=== PATIENT | male | born 1945 | race African-American/Black ===

== ENCOUNTER 2017-07-03 06:09 | Observation (INO) | payer MEDICARE ==
[~2017-07-03] VITALS: Ht 165.1 cm; Wt 89.5 kg
[~2017-07-03 06:09] MED LIST: ACET325T26 PO; AMLO5TAB4 PO; ASPI325T80 PO; CHOL200074 PO; CYCL1DRO EACHEYE; DIPH25CA61 PO; DONE10TA56 PO; DOXE10CA PO; FLUT16SP NAS; IBUP200T64 PO; IPRA15SP PO; LISI1TAB7 PO; METH750T2 PO; MINOXIDIL PO; OXYC-307 PO; RANI150T8 PO; RANI75TA12 PO; ROSU10TA PO; ROSU5TAB PO; SILD100T PO; TAMS-11 PO; VITA400C43 PO; ZOLP10TA PO
[2017-07-03 06:56] VITALS: BP 116/69
[2017-07-03] MEDS ORDERED: BUPIVACAINE/PF 0.5% ONE (07:24)
[2017-07-03] MEDS ORDERED: THROMBIN 5,000 UNIT VIAL TP ONE (07:24)
[2017-07-03] MEDS ORDERED: BACITRACIN 50,000 UNIT ONE (07:25)
[2017-07-03] MEDS ORDERED: EPINEPHRINE 1 MG/ML, 1ML ONE (07:25)
[2017-07-03] MEDS ORDERED: FENTANYL PF 100 MCG/2ML ONE ×3 (08:06→10:18)
[2017-07-03] MEDS ORDERED: DEXAMETHASONE 4 MG/ML, 1ML ONE (08:08)
[2017-07-03] MEDS ORDERED: CEFAZOLIN 1,000 MG ONE (08:08)
[2017-07-03] MEDS ORDERED: ROCURONIUM 10 MG/ML ONE (08:08)
[2017-07-03] MEDS ORDERED: PROPOFOL 10 MG/ML, 20ML ONE (08:08)
[2017-07-03] MEDS ORDERED: ONDANSETRON 2MG/ML, 2ML ONE (08:08)
[2017-07-03] MEDS ORDERED: SUCCINYLCHOLINE 20 MG/ML, 10ML ONE (08:08)
[2017-07-03] MEDS ORDERED: HYDROmorphone 1 MG/ML, 1ML IV PRN (09:30)
[2017-07-03] MEDS ORDERED: PROMETHAZINE 25 MG/ML, 1ML IM PRN (09:30)
[2017-07-03] MEDS ORDERED: HYDROmorphone PCA 30 MG/30 ML IV PRN (09:30)
[2017-07-03] MEDS ORDERED: hydrALAzine 20 MG/ML, 1ML IV PRN (09:30)
[2017-07-03] MEDS ORDERED: OXYcodone 5 MG/5 ML ORAL.SOL UDC PO PRN (09:30)
[2017-07-03] MEDS ORDERED: FENTANYL PF 100 MCG/2ML IV PRN (09:30)
[2017-07-03] MEDS ORDERED: OXYcodone/APAP 5/325MG TABLET PO PRN (09:30)
[2017-07-03] MEDS ORDERED: MAGNESIUM HYDROXIDE 8%, 30ML UDC PO PRN (09:30)
[2017-07-03] MEDS ORDERED: FAMOTIDINE 20 MG TABLET PO PRN (09:30)
[2017-07-03] MEDS ORDERED: morphine SULFATE 10 MG/ML, 1ML IVPush PRN (09:30)
[2017-07-03] MEDS ORDERED: DIAZEPAM 5 MG/ML, 2ML IVPush PRN (09:30)
[2017-07-03] MEDS ORDERED: PHARMACY MAY ADJ FOR RENAL FX MC PRN (09:30)
[2017-07-03] MEDS ORDERED: ONDANSETRON 2MG/ML, 2ML IVPush PRN ×2 (09:30)
[2017-07-03] MEDS ORDERED: LABETALOL 5MG/ML, 20ML IV PRN (09:30)
[2017-07-03] MEDS ORDERED: TIZANIDINE 4MG TABLET PO PRN (09:30)
[2017-07-03] MEDS ORDERED: ACETAMINOPHEN 325 MG TABLET PO PRN (09:30)
[2017-07-03] MEDS ORDERED: BISACODYL 10 MG SUPP PR PRN (09:30)
[2017-07-03] MEDS ORDERED: PROMETHAZINE 25 MG/ML, 1ML IV PRN (09:30)
[2017-07-03] MEDS: NS + 20MEQ KCL 1,000 ML IV SCH ×2 (10:00→16:45)
[2017-07-03] MEDS ORDERED: OXYcodone 5 MG/5 ML ORAL.SOL UDC ONE (10:17)
[2017-07-03] MEDS ORDERED: IPRATROPIUM 0.5 MG/2.5 ML INHA NPPB PRN (10:30)
[2017-07-03] MEDS ORDERED: HYDROmorphone PCA 30 MG/30 ML ONE (10:31)
[2017-07-03 13:54] VITALS: BP 104/70
[2017-07-03] MEDS: CEFAZOLIN PMX 1GM/50ML 50 ML IVPB SCH (16:45)
[2017-07-03 20:05] VITALS: BP 127/83
[2017-07-03] MEDS: CYCLOSPORINE EACHEYE SCH (21:00)
[2017-07-03] MEDS ORDERED: TAMSULOSIN 0.4 MG CAP.ER.24H PO SCH (21:00)
[2017-07-03] MEDS ORDERED: ZOLPIDEM 10MG TABLET PO SCH (21:00)
[2017-07-03] MEDS ORDERED: ATORVASTATIN 20 MG TABLET PO SCH (21:00)
[2017-07-03] MEDS ORDERED: DONEPEZIL 10 MG TABLET PO SCH (21:00)
[2017-07-03] MEDS ORDERED: TEMPLATE NON-FORMULARY MED. (Ranitidine Hcl** (Zantac**) 150 MG) PO SCH (21:00)
[2017-07-03] MEDS ORDERED: HYDROCHLOROTHIAZIDE 25 MG TABLET PO SCH (21:00)
[2017-07-03] MEDS ORDERED: FAMOTIDINE 20 MG TABLET PO SCH (21:00)
[2017-07-03] MEDS ORDERED: DOXEPIN 10 MG CAPSULE PO SCH (21:00)
[2017-07-03] MEDS ORDERED: LISINOPRIL 20 MG TABLET PO SCH (21:00)
[2017-07-03] MEDS: SODIUM CHLORIDE FLUSH 10ML SYR IVF SCH (21:22)
[2017-07-04] MEDS: CEFAZOLIN PMX 1GM/50ML 50 ML IVPB SCH (00:01)
[2017-07-04 00:15] VITALS: BP 114/67
[2017-07-04] MEDS: NS + 20MEQ KCL 1,000 ML IV SCH (04:19)
[2017-07-04 07:57] VITALS: BP 108/62
[2017-07-04] MEDS: CYCLOSPORINE EACHEYE SCH (08:42)
[2017-07-04] MEDS: SODIUM CHLORIDE FLUSH 10ML SYR IVF SCH (08:53)
[2017-07-04] MEDS: HYDROcodone/APAP 10/325 MG TABLET PO PRN ×2 (08:53→13:37)
[2017-07-04] MEDS ORDERED: LISINOPRIL 20 MG TABLET PO SCH (09:00)
[2017-07-04] MEDS ORDERED: DIPHENHYDRAMINE 25 MG CAPSULE PO SCH (09:00)
[2017-07-04] MEDS ORDERED: AMLODIPINE 5 MG TABLET PO SCH (09:00)
[2017-07-04] MEDS ORDERED: SENNA/DOCUSATE TABLET PO SCH (09:00)
[2017-07-04] MEDS ORDERED: TAMSULOSIN 0.4 MG CAP.ER.24H PO SCH (09:00)
[2017-07-04] MEDS ORDERED: FLUTICASONE NASAL SPRAY 16GM NAS SCH (09:00)
[2017-07-04] MEDS ORDERED: HYDROCHLOROTHIAZIDE 25 MG TABLET PO SCH (09:00)
[2017-07-04] MEDS ORDERED: TIZA4TAB9 PO (09:24)
[2017-07-04] MEDS ORDERED: HYDR-3307 PO (09:24)
[2017-07-04 14:49] VITALS: BP 106/55
== END 2017-07-04 15:45 | disposition home or self-care (01) ==
LOC: OUT 06:09 → 4NOR 06:10 → OUT 09:24 → 4NOR 09:24
PROVIDERS: ADMIT Neurological Surgery; ATTEND Neurological Surgery
DX: M48.06 Spinal stenosis, lumbar region (principal); M54.16 Radiculopathy, lumbar region; I10 Essential (primary) hypertension; E78.00 Pure hypercholesterolemia, unspecified; Z87.891 Personal history of nicotine dependence; Z80.9 Family history of malignant neoplasm, unspecified; Z82.49 Family history of ischemic heart disease and other diseases of the circulatory system
CPT/HCPCS: 63047; 63048; 95938; 95941; 96365; 96375; G0378; J0171; J0330; J0690; J1100; J1170; J2405; J2704; J3010; J3480; J3490; Q0163